=== PATIENT | male | born 1995 | race Caucasian/White ===

== ENCOUNTER 2017-01-31 08:50 | Emergency (ER) | payer OTHER ==
[~2017-01-31] VITALS: Ht 177.8 cm; Wt 79.4 kg
[2017-01-31 09:14] VITALS: BP 136/53
== END 2017-01-31 09:14 | disposition home or self-care (01) ==
LOC: ED 08:50
DX: J30.9 Allergic rhinitis, unspecified (principal); R03.0 Elevated blood-pressure reading, without diagnosis of hypertension